=== PATIENT | female | born 1955 | race Two or more races ===

== ENCOUNTER → 2025-03-15 | Outpatient (CLI) | payer MEDICARE, MEDICAID, SELFPAY ==
--- NOTE | 2025-03-15 14:11 | NEURO_ITS ---
NCS and/or EMG Patient Report Ordering Doctor: Tian Almanza DATE OF SERVICE: 03/15/25 Janette presents for electrodiagnostic testing of the lower limbs. She reports numbness and tingling in both lower limbs. Electrodiagnostic findings: Motor nerve measured at the tibialis anterior demonstrates normal distal latency, amplitude and conduction velocity bilaterally. Normal tibial motor response bilaterally. Prolonged sural latency is noted bilaterally. Absent superficial peroneal response bilaterally. Prolon ged H?reflex bilaterally. Prolonged tibial and peroneal F?waves. Needle EMG testing was performed the lower limbs. All muscles tested showed no evidence of denervation with normal motor unit action potentials. Electrodiagnostic assessment: This is an abnormal study. 1. 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 2. There is no electrodiagnostic evidence for lumbosacral radiculopathy Multi Select Codes Neurology Neurology Interp Codes: 83955-27 Musc test done w/n test comp (interp) (2) and 63112-28 Nrv cndj test 9-10 studies (interp)
== END | disposition home or self-care (01) ==
PROVIDERS: PCP Nurse Practitioner Family; Referring Provider Nurse Practitioner Family; Visit Provider Nurse Practitioner Family
DX: G62.9 Polyneuropathy, unspecified (principal); D62 Acute posthemorrhagic anemia
CPT/HCPCS: 95886; 95911